=== PATIENT | female | born 1950 | race Caucasian/White ===

== ENCOUNTER 2017-04-16 12:55 | Inpatient (IN) | payer MEDICARE, OTHER ==
[~2017-04-16] VITALS: Ht 154.9 cm; Wt 75.5 kg
--- NOTE | ~2017-04-16 | DS ---
Unit #: [id number] #: [id number] Patient: JOELLE ZURITA [id number] [address] [address] [id number] I MR#: [id number] NAME: JOELLE ZURITA ROOM: 224 Age: 67 Sex: F Admission Date: 04/17/2017 : 1950 Discharge Date: 04/19/2017 Attending Physician: Jm Brown M.D. Primary Care Physician: Marcus Meza M.D. DISCHARGE SUMMARY DISCHARGE DIAGNOSES 1. C-diff colitis. 2. Dehydration. 3. Hypokalemia. 4. Chronic anticoagulation with Coumadin for prior right leg DVT. HOSPITAL COURSE The patient is a 67-year-old woman with a history significant for hypertension, hypothyroidism, discoid lupus, chronic anticoagulation for prior right leg DVT, who presented with symptoms of abdominal pain and persistent diarrhea. She was found to have a low potassium on labs with a potassium of 2.3. The patient's stool was sent for evaluation and came back positive for clostridium difficile. The patient has been continued on Flagyl 500 mg p.o. q.8 h. The patient will be discharged today. She is to continue her Flagyl treatment for two weeks. She is to follow up with her primary care physician within one to two weeks. If after two weeks of treatment there is no improvement of her diarrhea and persistence of c-diff colitis, would recommend treatment with oral vancomycin. Her dehydration was treated with IV fluids and her hypokalemia was treated with potassium replacement both IV and p.o. her hydrochlorothiazide medication will be held as long as her diarrhea persists. DISCHARGE MEDICATIONS 1. Coumadin 4 mg p.o. daily. 2. Lexapro 10 mg p.o. daily. 3. Trazodone 50 mg p.o. at nighttime. 4. Plaquenil 200 mg p.o. daily. 5. Lipitor 20 mg p.o. daily. 6. Boniva 150 mg p.o. monthly. 7. Metronidazole 500 mg p.o. t.i.d. 8. Florastor p.o. q.i.d. 9. Potassium chloride 10 mEq b.i.d. 10. Levothyroxine 112 mcg p.o. daily. DISCHARGE INSTRUCTIONS Recommend followup with primary care physician within one week. Dictated by... Jm Brown M.D. Unit #: [id number] #: [id number] Patient: JOELLE ZURITA AVM/gz TD: 04/20/2017 07:18 JOB #: [id number] DISCHARGE SUMMARY Page 1 of 1 X X DISCHARGE SUMMARY
--- NOTE | ~2017-04-16 | CT2 ---
[facility] A Service of [facility] RADIOLOGY TEXT RESULTS PATIENT: JOELLE ZURITA LOCATION: [facility] 224-01 : 48 UNIT #: [id number] AGE: [address]: YVONNETERESA V SEX: F ORDER DR: [id number] [place] [id number] MR#: [id number] Acc #: [id number] NAME: JOELLE ZURITA. : 1950 SEX: F STUDY DATE/TIME: 04/16/2017 16:29 UNIT: SEDOF ROOM: [id number] STUDY DESCRIPTION: CT Abd and Pelv W Cont Attending Physician: Rosey Haney M.D. Ordering Physician: Boris Clarke M.D. Primary Care Physician: Bonifacio Meza MEDICAL IMAGING REPORT This report is preliminary unless electronic signature is present. EXAM CT abdomen and pelvis with IV contrast. COMPARISON None INDICATION 67-year-old female with generalized abdominal pain and diarrhea for 1 week. The patient has been taking Keflex for [address] imaging of the abdomen and pelvis was performed after IV administration of 100 mL Isovue-370. Coronal and sagittal reformats were constructed. This CT exam was performed with one or more of the following radiation dose reduction techniques: automatic exposure control, adjustment of mA and/or kV according to patient size, and iterative reconstruction. FINDINGS There is diffuse long segment thickening and hyperemia of the lomeli of the colon with relative sparing of the sigmoid colon and transverse colon. Given the history, findings are concerning for an acute early C-difficile colitis. There has been prior appendectomy. There is no evidence of bowel obstruction. There is a moderate-sized hiatal hernia. Prior hysterectomy. No adnexal masses. No free fluid or pneumoperitoneum. No acute findings in the lower chest. There is a calcified granuloma in the left lower lobe. Bulky degenerative facet disease at L5-S1 bilaterally. No acute fractures or suspicious osseous lesions. Exam is mildly limited by motion. The liver, pancreas, gallbladder, and adrenal glands are unremarkable. There are calcified splenic granulomas. No hydronephrosis or hydroureter. Urinary bladder is distended with fluid STS. [facility] A Service of [facility] RADIOLOGY TEXT RESULTS PATIENT: JOELLE ZURITA LOCATION: [facility] 224-01 : [birth year] UNIT #: [id number] AGE: [address]: TERESA RUSSELL V SEX: F ORDER DR: but is otherwise unremarkable. No adnexal masses. Prior hysterectomy. There is a punctate nonobstructive calculus in the right kidney. Tiny low-density lesion in the inferior pole of the left kidney is too small to characterize. There is tortuosity of the abdominal aorta. The abdominal aorta is diffusely calcified with calcifications of the iliac and femoral arteries bilaterally as well as the origins of the celiac, superior mesenteric, and bilateral renal arteries. No significant associated stenosis is seen. No adenopathy. No evidence of venous thrombosis. IMPRESSION 1. Diffuse mild thickening and hyperemia of the lomeli of the colon, suggestive of a C-difficile colitis given the clinical history. Other inflammatory colitis is possible but thought less likely. There is no free fluid. There is no evidence of bowel obstruction or abscess formation. 2. Moderate hiatal hernia. 3. Prior appendectomy and hysterectomy. 4. Nonobstructive punctate calculus right kidney. Tiny low-density lesion in the left kidney is too small to characterize. 5. Diffuse atherosclerotic disease in the abdomen and pelvis as described in the body of the report. Dictated by... Desmond Garcia M.D. THIS IS AN ELECTRONICALLY VERIFIED REPORT Desmond Garcia M.D. at 04/23/2017 8:26 PM Ben TD: 04/16/2017 20:50 JOB #: [id number] MEDICAL IMAGING REPORT Page 1 of 1
--- NOTE | ~2017-04-16 | HP ---
Unit #: [id number] #: [id number] Patient: JOELLE ZURITA [id number] [address] [address] [id number] I MR#: [id number] NAME: JOELLE ZURITA. ROOM: 477 Age: 67 Sex: F Admission Date: 04/16/2017 : 1950 Attending Physician: Jm Brown M.D. HISTORY AND PHYSICAL CHIEF COMPLAINT Diarrhea, hypokalemia. HISTORY OF PRESENT ILLNESS This very pleasant 67-year-old female anticoagulated for a right DVT with history of hypertension and hypothyroidism was transferred from [facility] for possible colitis. The patient was well until two weeks prior to admission when she developed nonbloody diarrhea with postprandial nausea and vomiting. Was recently placed on antibiotics for a sore throat. Notes some right lower quadrant pain. No contacts or dietary indiscretion. She was seen at [facility] where a CT scan showed diffuse, mild colitis. White blood count was 13.3, her potassium was 2.3 and a sodium of 130. She was bolused with IV fluids and given a total of 60 mEq of potassium, Bentyl, Pepcid, and Zofran. She was also given 500 mg of Flagyl and 500 mg of IV Levaquin. PAST MEDICAL HISTORY 1. Right leg DVT. 2. Essential hypertension. 3. Hypothyroidism. 4. Hyperlipidemia. 5. Depression. 6. Insomnia. 7. Lupus affecting the skin. I suspect this is discoid lupus. 8. Total abdominal hysterectomy. 9. Appendectomy. 10. Arthroscopic right knee surgery. 11. Right shoulder surgery. 12. Bilateral foot surgery. ALLERGIES Codeine. HOME MEDICATIONS 1. Hydrochlorothiazide 25 mg daily. 2. Coumadin 4 mg daily. 3. Synthroid 0.112 mg daily. 4. Lipitor 20 mg daily. 5. Lexapro 10 mg daily. 6. Plaquenil 200 mg daily. 7. Trazodone 50 mg at bedtime. Unit #: [id number] #: [id number] Patient: JOELLE ZURITA FAMILY HISTORY Negative for GI disease. SOCIAL HISTORY The patient lives with her common law . She smokes one pack per day of tobacco and does not drink alcohol. REVIEW OF SYSTEMS Notable for nausea, vomiting, diarrhea, right lower quadrant pain, DVT, hypertension, tobacco, hypothyroidism, hyperlipidemia, lupus, depression, above-mentioned surgeries. All other systems were reviewed and otherwise negative. PHYSICAL EXAMINATION GENERAL: A pleasant, 67-year-old female who looks younger than stated age. VITAL SIGNS: Temperature 98, pulse 79, respirations 16, blood pressure 184/74, current blood pressure is 175/65, and O2 saturation is 99% on room air. HEENT: Eyes PERRLA. Extraocular muscles are intact. Pharynx is benign. NECK: Supple without adenopathy or thyromegaly. CHEST: Clear. CARDIAC: Normal S1 and S2 without S3, S4, or murmur. ABDOMEN: Bowel sounds are present. No hepatosplenomegaly, tenderness, or masses. EXTREMITIES: Without clubbing, cyanosis, or edema. Pedal pulses are present. NEUROLOGIC: Patient is awake, alert, and oriented. Her cranial nerves are intact. She has equal strength throughout. DIAGNOSTIC STUDIES ADMISSION LABORATORY: Hematocrit is 39.6, white blood count is 13.3. INR is 2.7. SMA-12: Potassium 2.3, sodium is 130. Normal lipase. Urinalysis 1+ leukocyte esterase. IMAGING: CT scan shows diffuse mild likely colitis and diffuse atherosclerotic disease. ASSESSMENT 1. Diarrhea and postprandial nausea and vomiting for the past two weeks. CT scan was most consistent with colitis at [facility]. Rule out C. difficile colitis versus other. 2. History of lupus affecting the skin which I suspect is discoid lupus. 3. Hypokalemia. 4. Hypothyroidism. 5. Hypertension, on hydrochlorothiazide. 6. Hypovolemic hyponatremia and also secondary to hydrochlorothiazide. 7. Hyperlipidemia. 8. Depression. 9. Anticoagulated for a right leg deep venous thrombosis. PLANS 1. IV fluids. 2. Replace potassium and check magnesium. 3. Flagyl pending stool cultures. Patient received one dose of Levaquin prior to transfer which I will not continue. 4. Daily PT-INR while hospitalized. 5. Obtain TSH. 1. Unit #: [id number] #: [id number] Patient: JOELLE ZURITA Dictated by Cecilia Glez M.D. AML/am TD: 04/17/2017 08:36 JOB #: [id number] HISTORY AND PHYSICAL Page 1 of 1 X Cecilia Glez MD HISTORY AND PHYSICAL
[2017-04-16 15:11] LABS: URINE SOURCE CLEAN CATCH
[2017-04-16 15:13] LABS: URINE APPEARANCE CLEAR; URINE BILIRUBIN NEG (NEG); URINE BLOOD TRACE-INTACT (NEG); URINE COLOR YELLOW; URINE GLUCOSE NEG (NORM); URINE KETONE NEG (NEG); URINE LEUKOCYTE ESTERASE 1+ (NEG); URINE NITRATE NEG (NEG); URINE PH 6.5 (5-8); URINE PROTEIN NEG (NEG); URINE SPECIFIC GRAVITY <=1.005 (1.003-1.035); URINE UROBILINOGEN 0.2 MG/DL (NORM)
[2017-04-16 15:15] LABS: MICRO INDICATED? YES
[2017-04-16 15:24] LABS: CULTURE INDICATED? NO; URINE BACTERIA NEG (NEG); URINE MUCUS PRESENT; URINE RBC 0-2 /[HPF] (0-2); URINE SQUAMOUS EPITHELIAL CELL MANY /[HPF]
[2017-04-16 15:35] LABS: BASOPHIL# 0.1 X10e3 (0-0.3); BASOPHIL% 0.7 % (0-2.5); EOSINOPHIL% 0.2 % (0.0-7.0); HEMATOCRIT 39.6 % (35.0-45.0); HEMOGLOBIN 13.4 gm/dL (12.0-16.0); LYMPHOCYTE# 1.2 X10e3 (1.0-3.5); LYMPHOCYTE% 9.2 % (17.0-45.0); MEAN CELL VOLUME 83.4 FL (83-96); MEAN CORPUSCULAR HEMOGLOBIN 28.2 PG (28-34); MEAN CORPUSCULAR HGB CONC 33.8 g/dL (30-36); MEAN PLATELET VOLUME 8.4 FL (6.5-11.5); MONOCYTE# 1.2 X10e3 (0-1.0); MONOCYTE% 9.2 % (3.0-12.0); NEUTROPHIL# 10.7 X10e3 (1.5-7.1); NEUTROPHIL% 80.7 % (40-75); PLATELET COUNT 257 X10e3 (140-420); RED BLOOD COUNT 4.74 X10e (3.90-5.30); RED CELL DISTRIBUTION WIDTH 15.2 % (11.0-15.5); WHITE BLOOD COUNT 13.3 X10e3 (4.0-10.5)
[2017-04-16 15:38] LABS: DIFF IND NO
[2017-04-16 15:55] LABS: BILIRUBIN, DIRECT 0.1 mg/dL (0.0-0.2); BILIRUBIN,INDIRECT 0.5 mg/dL (0.0-0.9); BILIRUBIN,TOTAL 0.6 mg/dL (0.2-2.0); BUN/CREATININE RATIO 8.57; CALCIUM SERUM 8.7 mg/dL (8.4-10.2); CREATININE SERUM 0.7 mg/dL (0.6-1.4); GLOM FILT RATE Estimated 88.4 mL/min (>60); PROTEIN TOTAL SERUM 7.2 g/dL (6.0-8.3)
[2017-04-16 15:57] LABS: POTASSIUM 2.3 mmol/L (3.5-5.1)
[2017-04-16 16:20] LABS: INR 2.7; PROTHROMBIN TIME (PATIENT) 30.4 SECONDS (9.5-12.4)
[2017-04-16] MEDS ORDERED: LIPITOR20 MG PO (20:08)
[2017-04-16] MEDS ORDERED: LEXAPRO PO (20:08)
[2017-04-16] MEDS ORDERED: PLAQUENIL200 MG PO (20:09)
[2017-04-16] MEDS ORDERED: DESYREL50 MG PO (20:09)
[2017-04-16] MEDS ORDERED: HYDROCHLOROTHIA25 MG PO (20:09)
[2017-04-16] MEDS ORDERED: COUMADIN4 MG PO (20:10)
[2017-04-16] MEDS ORDERED: BONIVA150 MG PO (20:10)
[2017-04-16] MEDS ORDERED: LEVOTHYROXINE (20:11)
[2017-04-17] MEDS ORDERED: PLAQUENIL200 MG PO (03:44)
[2017-04-17] MEDS ORDERED: SYNTHROID112 MCG PO (03:46)
[2017-04-17 10:31] LABS: BASOPHIL# 0.1 X10e3 (0-0.3); BASOPHIL% 0.9 % (0-2.5); EOSINOPHIL% 0.2 % (0.0-7.0); HEMATOCRIT 35.1 % (35.0-45.0); HEMOGLOBIN 11.5 gm/dL (12.0-16.0); LYMPHOCYTE% 8.1 % (17.0-45.0); MEAN CELL VOLUME 84.2 FL (83-96); MEAN CORPUSCULAR HEMOGLOBIN 27.5 PG (28-34); MEAN CORPUSCULAR HGB CONC 32.7 g/dL (30-36); MEAN PLATELET VOLUME 8.3 FL (6.5-11.5); MONOCYTE# 0.9 X10e3 (0-1.0); MONOCYTE% 7.2 % (3.0-12.0); NEUTROPHIL# 10.6 X10e3 (1.5-7.1); NEUTROPHIL% 83.6 % (40-75); PLATELET COUNT 239 X10e3 (140-420); RED BLOOD COUNT 4.17 X10e (3.90-5.30); WHITE BLOOD COUNT 12.7 X10e3 (4.0-10.5)
[2017-04-17 10:36] LABS: DIFF IND NO
[2017-04-17 10:46] LABS: INR 2.5; PROTHROMBIN TIME (PATIENT) 27.7 SECONDS (10.0-11.7)
[2017-04-17 10:57] LABS: CALCIUM SERUM 8.3 mg/dL (8.4-10.2); CARBON DIOXIDE 27 mmol/L (22-31); CHLORIDE 103 mmol/L (100-111); CREATININE SERUM 0.6 mg/dL (0.6-1.4); GLUCOSE FASTING 112 mg/dL (70-110); MAGNESIUM 1.8 mg/dL (1.6-3.0); POTASSIUM 3.6 mmol/L (3.5-5.1); SODIUM 137 mmol/L (135-145)
[2017-04-17 10:59] LABS: BLOOD UREA NITROGEN <5 mg/dL (9-23); BUN/CREATININE RATIO 8.33
[2017-04-18 03:21] LABS: BASOPHIL% 0.3 % (0-2.5); EOSINOPHIL% 0.6 % (0.0-7.0); HEMATOCRIT 33.3 % (35.0-45.0); LYMPHOCYTE# 1.6 X10e3 (1.0-3.5); LYMPHOCYTE% 21.1 % (17.0-45.0); MEAN CELL VOLUME 84.5 FL (83-96); MEAN CORPUSCULAR HGB CONC 33.1 g/dL (30-36); MEAN PLATELET VOLUME 8.7 FL (6.5-11.5); MONOCYTE# 0.6 X10e3 (0-1.0); MONOCYTE% 7.9 % (3.0-12.0); NEUTROPHIL# 5.2 X10e3 (1.5-7.1); NEUTROPHIL% 70.1 % (40-75); PLATELET COUNT 228 X10e3 (140-420); RED BLOOD COUNT 3.94 X10e (3.90-5.30); RED CELL DISTRIBUTION WIDTH 15.5 % (11.0-15.5); WHITE BLOOD COUNT 7.5 X10e3 (4.0-10.5)
[2017-04-18 03:23] LABS: DIFF IND NO
[2017-04-18 03:32] LABS: INR 2.6; PROTHROMBIN TIME (PATIENT) 28.4 SECONDS (10.0-11.7)
[2017-04-18 04:13] LABS: ALBUMIN SERUM 3.2 g/dL (3.5-5.0); ALKALINE PHOSPHATASE 47 U/L (32-92); ALT (SGPT) 8 U/L (10-40); AST (SGOT) 17 U/L (10-42); BILIRUBIN,TOTAL 0.6 mg/dL (0.2-2.0); CARBON DIOXIDE 27 mmol/L (22-31); CHLORIDE 102 mmol/L (100-111); CREATININE SERUM 0.6 mg/dL (0.6-1.4); GLUCOSE FASTING 110 mg/dL (70-110); PROTEIN TOTAL SERUM 5.6 g/dL (6.0-8.3); SODIUM 135 mmol/L (135-145)
[2017-04-18 04:21] LABS: BLOOD UREA NITROGEN <5 mg/dL (9-23); BUN/CREATININE RATIO 8.33
[2017-04-18 04:22] LABS: POTASSIUM 2.9 mmol/L (3.5-5.1)
[2017-04-19 06:24] LABS: INR 2.7; PROTHROMBIN TIME (PATIENT) 29.7 SECONDS (10.0-11.7)
[2017-04-19 08:06] LABS: MAGNESIUM 2.4 mg/dL (1.6-3.0); POTASSIUM 4.1 mmol/L (3.5-5.1)
[2017-04-19] MEDS ORDERED: FLAGYL250 M1 PO (10:34)
[2017-04-19] MEDS ORDERED: PROBIOTIC250 MG PO (10:36)
[2017-04-19] MEDS ORDERED: POTASSIUM CHLO10 MEQ PO (10:37)
== END 2017-04-19 11:19 | disposition home or self-care (01) | DRG 372 ==
LOC: SED 12:55 → SEDOF 19:04 → C4C 19:04 → SEDOF 04-17 02:45 → SED 04-17 02:45 → C4C 04-17 07:07 → SED 04-17 16:20 → C4C 04-17 16:20 → C2A 04-17 16:20 → SEDOF 04-17 16:20 → C4C 04-18 12:19 → C2A 04-18 12:19
PROVIDERS: Emergency Medicine; Family Medicine; Internal Medicine
DX: A04.7 Enterocolitis due to Clostridium difficile (principal); E87.1 Hypo-osmolality and hyponatremia; I10 Essential (primary) hypertension; E86.0 Dehydration; E87.6 Hypokalemia; E78.5 Hyperlipidemia, unspecified; E03.9 Hypothyroidism, unspecified; F32.9 Major depressive disorder, single episode, unspecified; F17.200 Nicotine dependence, unspecified, uncomplicated; T50.2X5A Adverse effect of carbonic-anhydrase inhibitors, benzothiadiazides and other diuretics, initial encounter; Y92.9 Unspecified place or not applicable; Z88.5 Allergy status to narcotic agent; Z90.710 Acquired absence of both cervix and uterus; Z86.718 Personal history of other venous thrombosis and embolism; Z79.01 Long term (current) use of anticoagulants
CPT/HCPCS: 36415; 74177; 80048; 80053; 80076; 81003; 83630; 83690; 83735; 84132; 84443; 85025; 85610; 87045; 87177; 87209; 87427; 87493; 87899; 96361; 96365; 96375; 99285; J1956; J2405; J3475; Q9967